=== PATIENT | male | born 1940 | race Caucasian/White ===

== ENCOUNTER 2017-10-06 20:01 | Emergency (ER) | payer OTHER ==
[~2017-10-06] VITALS: Ht 182.9 cm; Wt 90.7 kg
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
[2017-10-06 20:37] LABS: ABSOLUTE BASOPHIL COUNT 0.2 /CUMM (0.0-0.2); ABSOLUTE EOSINOPHIL COUNT 0.2 /CUMM (0.0-0.7); ABSOLUTE GRANULOCYTE CT 10.6 /CUMM (1.4-6.5); ABSOLUTE LYMPH COUNT 2.2 /CUMM (1.2-3.4); ABSOLUTE MONOCYTE COUNT 1.2 /CUMM (0.10-0.60); BASOPHIL % 1.3 % (0.0-2.0); EOSINOPHIL % 1.7 % (0-5); GRANULOCYTE % 73.7 % (42.2-75.2); HEMATOCRIT 48.5 % (42-52); MEAN CORPUSCULAR HGB 33.2 PG (27.0-31.0); MEAN CORPUSCULAR VOLUME 100.4 FL (80.0-94.0); MEAN PLATELET VOLUME 9.2 FL (7.4-10.4); PLATELET COUNT 190 /CUMM (130-400); RBC DISTRIBUTION WIDTH 14.2 % (11.5-14.5); RED BLOOD CELL CT 4.83 /CUMM (4.70-6.10); WHITE BLOOD CELL COUNT 14.3 /CUMM (4.8-10.8)
--- NOTE | 2017-10-06 21:20 | RADIOLOGY REPORT ---
EXAMINATION: XR PORTABLE CHEST CLINICAL INFORMATION: Pneumonia CHF COMPARISON: None TECHNIQUE: Portable frontal view of the chest was obtained. FINDINGS: There is mild increased interstitial markings could reflect chronic change or mild edema. The cardiac silhouette is borderline enlarged. Pulmonary vascularity is normal. Aorta unremarkable. Bone and soft tissues unremarkable. IMPRESSION: Mild chronic increased interstitial markings versus mild edema. Cardiac silhouette borderline enlarged
[2017-10-06] MEDS ORDERED: LISINOPRIL40 M1 PO (22:18)
[2017-10-06] MEDS ORDERED: ULORIC40 M1 PO (22:18)
[2017-10-06] MEDS ORDERED: AMLODIPINE BESYL5 M1 PO (22:18)
[2017-10-06] MEDS ORDERED: SIMVASTATIN20 M2 PO (22:19)
[2017-10-06 22:24] VITALS: BP 108/75
== END 2017-10-06 23:10 | disposition short-term general hospital (02) ==
LOC: ERH 20:01
PROVIDERS: Physician Assistant Medical
DX: I21.4 Non-ST elevation (NSTEMI) myocardial infarction (principal); I50.9 Heart failure, unspecified; R77.8 Other specified abnormalities of plasma proteins; R50.9 Fever, unspecified
CPT/HCPCS: 1263; 1288; 71045; 81001; 87040; 87086; 87804; 87804-59; 93005; 93010; 96361; 96374; 96375; 99291; J1940; J3490